=== PATIENT | male | born 1985 | race Caucasian/White ===

== ENCOUNTER 2022-11-08 16:20 | Emergency (ER) | payer MEDICARE, MEDICAID ==
[~2022-11-08 16:20] MED LIST: CLOB10TA PO; DIL100C PO
== END 2022-11-08 22:04 | disposition left against medical advice (07) ==
LOC: ER 16:21
DX: K92.9 Disease of digestive system, unspecified (principal); Z53.21 Procedure and treatment not carried out due to patient leaving prior to being seen by health care provider